=== PATIENT | male | born 1985 | race African-American/Black ===

== ENCOUNTER 2023-01-25 09:07 | Outpatient (CLI) | payer OTHER | END 2023-01-25 09:08 | disposition home or self-care (01) | LOC: DTY/OP 09:07 | PROVIDERS: ATTEND Surgery | DX: E66.01 Morbid (severe) obesity due to excess calories (principal) | CPT/HCPCS: 97802 ==

== ENCOUNTER 2023-05-14 13:00 | Inpatient (IN) | payer OTHER ==
[2023-05-14 13:42] VITALS: BMI 55.7
[2023-05-28] MEDS ORDERED: SUGAMMADEX SODIUM 200 MG/2 ML VIAL ONE (06:19)
[2023-05-28] MEDS ORDERED: Sevoflurane 250 ML INH ANEST BOTTLE ONE (06:20)
[2023-05-28] MEDS ORDERED: Fentanyl 250 MCG/5 ML VIAL ONE (06:20)
[2023-05-28] MEDS ORDERED: Famotidine/PF 20 mg/2ml Vial ONE (06:20)
[2023-05-28] MEDS ORDERED: EPINEPHrine 1 MG/ML VIAL ONE (06:36)
[2023-05-28] MEDS ORDERED: Bupivacaine 0.25% HCL 30 ML VIAL ONE (06:36)
[2023-05-28] MEDS ORDERED: Heparin 5,000 UNITS/ML VIAL ONE (07:26)
[2023-05-28] MEDS ORDERED: CEFAZOLIN 2 GM VIAL ONE (07:27)
[2023-05-28] MEDS ORDERED: Sodium Chloride 0.9% 100 ML ONE (07:27)
[2023-05-28] MEDS ORDERED: Rocuronium Bromide 10 MG/ML (10ML VIAL) ONE (07:42)
[2023-05-28] MEDS ORDERED: Dexamethasone 20 MG/5 ML VIAL ONE (07:42)
[2023-05-28] MEDS ORDERED: Succinylcholine 200 MG/10 ml SYRINGE FS ONE (07:42)
[2023-05-28] MEDS ORDERED: Ketorolac Tromethamine 30 MG/ML VIAL ONE (07:42)
[2023-05-28] MEDS ORDERED: Ondansetron PF 4 MG/2 ML Vial ONE ×2 (07:42→09:29)
[2023-05-28] MEDS ORDERED: PHENYLEPHRINE-NS 100 MCG/ML 10 ML SYRINGE ONE (07:42)
[2023-05-28] MEDS ORDERED: Lidocaine 1% PF 5 ML VIAL ONE (07:42)
[2023-05-28] MEDS ORDERED: PROPOFOL 200 MG/20 ML VIAL ONE (07:42)
[2023-05-28] MEDS ORDERED: Ipratropium/Albuterol 3 ML NEB NEB PRN (08:58)
[2023-05-28] MEDS ORDERED: Promethazine HCl 25 MG/ML VIAL IM PRN ×2 (08:58→09:09)
[2023-05-28] MEDS ORDERED: Ondansetron PF 4 MG/2 ML Vial IVP PRN (08:58)
[2023-05-28] MEDS ORDERED: Morphine 4 MG/ML VIAL SLOW IVP PRN (08:58)
[2023-05-28] MEDS ORDERED: Dextrose 50% Abboject 50 ML SYRINGE SLOW IVP PRN (08:58)
[2023-05-28] MEDS ORDERED: diphenhydrAMINE 50 MG/ML VIAL IVP PRN (08:58)
[2023-05-28] MEDS ORDERED: Glucagon 1 MG/ML KIT IM PRN (08:58)
[2023-05-28] MEDS ORDERED: hydrALAZINE 20 MG/ML VIAL SLOW IVP PRN (08:58)
[2023-05-28] MEDS ORDERED: Dextrose 5% in Water 1,000 ML IV PRN (08:58)
[2023-05-28] MEDS ORDERED: Morphine 2 MG/ML VIAL SLOW IVP PRN (08:58)
[2023-05-28] MEDS ORDERED: Ondansetron HCl/PF 4 MG/2 ML Vial IVP PRN (09:09)
[2023-05-28] MEDS ORDERED: PACU-Morphine 4MG/ML VIAL SLOW IVP PRN (09:09)
[2023-05-28] MEDS ORDERED: Meperidine HCl/PF 25 MG/ML VIAL SLOW IVP PRN (09:09)
[2023-05-28] MEDS ORDERED: fentaNYL 50 mcg/mL 1 mL Vial ONE ×4 (09:21→10:23)
[2023-05-28] MEDS ORDERED: Labetalol HCl 100 MG/20 ML VIAL ONE (10:27)
[2023-05-28] MEDS: Pantoprazole 40 MG VIAL IVP SCH (11:41)
[2023-05-28] MEDS ORDERED: Ketorolac Tromethamine 30 MG/ML VIAL IVP SCH (12:00)
[2023-05-28] MEDS: Hydrocodone-Acetamin 15 ML UDCUP PO PRN ×2 (12:29→19:23)
[2023-05-28] MEDS: D5 1/2 NS w/20 mEq KCL 1,000 ML IV SCH ×3 (12:30→19:21)
[2023-05-28] MEDS: CEFAZOLIN 2 GM in Sodium Chloride 0.9% 100 ML IVPB SCH (15:41)
[2023-05-28] MEDS: Ketorolac Tromethamine 30 MG/ML VIAL IVP SCH ×2 (15:42→21:20)
[2023-05-29] MEDS: CEFAZOLIN 2 GM in Sodium Chloride 0.9% 100 ML IVPB SCH (00:56)
[2023-05-29] MEDS: Hydrocodone-Acetamin 15 ML UDCUP PO PRN (00:56)
[2023-05-29] MEDS: Ketorolac Tromethamine 30 MG/ML VIAL IVP SCH ×2 (03:51→08:08)
[2023-05-29] MEDS: D5 1/2 NS w/20 mEq KCL 1,000 ML IV SCH (03:51)
[2023-05-29 06:14] LABS: #Monocytes 1.6 thou/uL (0.11-0.59); #Neutrophils 16.1 thou/uL (1.40-6.50); %Basophils 0.1 % (0.0-1.0); %Lymphocytes 9.2 % (21.0-51.0); %Monocytes 8.1 % (0.0-10.0); Hematocrit 39.1 % (42.0-52.0); Hemoglobin 12.3 g/dL (14.0-18.0); Mean Corpuscular HGB CONC 31.5 g/dL (32.0-36.0); Mean Corpuscular Hemoglobin 25.1 pg (27.0-31.0); Mean Corpuscular Volume 79.8 fl (78.0-98.0); Mean Platelet Volume 10.5 fL (7.4-10.4); Platelet Count 299 10x3/uL (130-400); White Blood Cell (WBC) Count 19.7 10x3/uL (4.8-10.8)
[2023-05-29 06:31] LABS: Anion Gap 12 mmol/L (10-20); BUN (Urea Nitrogen) 5 mg/dL (8.9-20.6); Calc. Creatinine Clearance 317 mL/min (70-130); Calcium 8.8 mg/dL (7.8-10.44); Carbon Dioxide 25 mmol/L (22-29); Chloride 104 mmol/L (98-107); Estimated GFR 115; Glucose 114 mg/dL (70-105); Potassium 4.3 mmol/L (3.5-5.1); Sodium 137 mmol/L (136-145)
[2023-05-29] MEDS: Pantoprazole 40 MG VIAL IVP SCH (08:07)
[2023-05-29 08:29] VITALS: BP 124/85; TEMP 98.7
== END 2023-05-29 10:22 | disposition home or self-care (01) | DRG 621 ==
LOC: SURG A 05-28 06:03 → EDSTATUS 05-28 13:00
PROVIDERS: ADMIT Surgery; ATTEND Surgery
PROC: 0DB64Z3 Excision of Stomach, Percutaneous Endoscopic Approach, Vertical (ICD-10-PCS; principal; 2023-05-28)
PROC: 8E0W4CZ Robotic Assisted Procedure of Trunk Region, Percutaneous Endoscopic Approach (ICD-10-PCS; 2023-05-28)
DX: E66.01 Morbid (severe) obesity due to excess calories (principal); Z98.890 Other specified postprocedural states; Z83.3 Family history of diabetes mellitus; Z68.43 Body mass index [BMI] 50.0-59.9, adult
CPT/HCPCS: 36415; 80048; 85025; 88307; C1889; C9113; J0171; J1100; J1644; J1650; J1885; J2405; J2704; J3010; J3480; J3490; S0020; S0028

== ENCOUNTER 2023-05-14 13:16 | Outpatient (CLI) | payer OTHER ==
[2023-05-14 14:35] LABS: #Basophils 0.1 10x3/uL (0.0-0.2); #Eosinphils 0.3 10x3/uL (0.0-0.5); #Monocytes 0.9 10x3/uL (0.0-1.1); #Neutrophils 8.5 10x3/uL (1.5-8.4); %Basophils 0.5 % (0.0-2.0); %Eosinophils 2.1 % (0.0-6.0); %Lymphocytes 25.9 % (18.0-47.0); %Monocytes 6.6 % (0.0-10.0); %Neutrophils 64.4 % (40.0-75.0); Hemoglobin 13.3 g/dL (13.5-17.5); Mean Corpuscular HGB CONC 31.7 g/dL (32.0-36.0); Mean Corpuscular Hemoglobin 25.2 pg (27.0-33.0); Mean Corpuscular Volume 79.7 fl (81.2-95.1); Mean Platelet Volume 10.4 fl (7.4-10.4); Platelet Count 286 10x3/uL (150-450); RBC Distribution Width 13.2 % (11.5-14.5); Red Blood Cell (RBC) Count 5.27 10x6/uL (4.32-5.72); White Blood Cell (WBC) Count 13.2 10x3/uL (3.5-10.5)
[2023-05-14 14:50] LABS: ALT (SGPT) 28 U/L (8-55); AST (SGOT) 22 U/L (5-34); Albumin 4.3 g/dL (3.5-5.0); Alkaline Phosphatase 53 U/L (40-110); Anion Gap 14 mmol/L (10-20); BUN (Urea Nitrogen) 10 mg/dL (8.9-20.6); Bilirubin, Total 0.4 mg/dL (0.2-1.2); Calc. Creatinine Clearance 0 mL/min (70-130); Calcium 9.4 mg/dL (7.8-10.44); Carbon Dioxide 27 mmol/L (22-29); Chloride 103 mmol/L (98-107); Estimated GFR 115; Globulin 3.1 g/dL (2.4-3.5); Glucose 124 mg/dL (70-105); Potassium 4.4 mmol/L (3.5-5.1); Protein, Total 7.4 g/dL (6.0-8.3); Sodium 140 mmol/L (136-145)
== END 2023-05-14 13:17 | disposition home or self-care (01) ==
LOC: LABBT 13:16
PROVIDERS: ATTEND Surgery
DX: Z01.818 Encounter for other preprocedural examination (principal); E66.01 Morbid (severe) obesity due to excess calories
CPT/HCPCS: 80053; 85025; 93005; 93010